=== PATIENT | male | born 1975 | race African-American/Black ===

== ENCOUNTER 2019-03-18 07:50 | Emergency (ER) | payer OTHER ==
[~2019-03-18] VITALS: Ht 188 cm; Wt 115.7 kg
[~2019-03-18 07:50] MED LIST: CENTRUM SILVER1 EAC2 PO; IBUPROFEN 800800 MG PO; NOHOMEMEDICATIONS; PERCOCET 5-3251 EACH PO; PERCOCET PO; PHENERGAN 25 MG25 M1 PO; PRILOSEC20 MG PO; ZOFRAN ODT4 MG SUBLING
[2019-03-18 07:59] VITALS: BP 140/72
[2019-03-18] MEDS ORDERED: NORCO 5-325 TA1 EAC1 PO (09:12)
== END 2019-03-18 09:14 | disposition home or self-care (01) ==
LOC: M.ERS 07:50
DX: S86.811A Strain of other muscle(s) and tendon(s) at lower leg level, right leg, initial encounter (principal); F17.210 Nicotine dependence, cigarettes, uncomplicated; W01.0XXA Fall on same level from slipping, tripping and stumbling without subsequent striking against object, initial encounter; Y92.89 Other specified places as the place of occurrence of the external cause; Y93.89 Activity, other specified; Y99.8 Other external cause status

== ENCOUNTER 2019-04-01 21:30 | Emergency (ER) | payer OTHER ==
[~2019-04-01] VITALS: Ht 188 cm; Wt 117.9 kg
[~2019-04-01 21:30] MED LIST changes: +NORCO 5-325 TA1 EAC1 PO
[2019-04-01] MEDS ORDERED: HYDROCODON-ACE1 EAC8 PO (22:54)
[2019-04-01 22:58] VITALS: BP 156/93
== END 2019-04-01 23:00 | disposition home or self-care (01) ==
LOC: M.ERS 21:30
DX: M25.461 Effusion, right knee (principal); F17.210 Nicotine dependence, cigarettes, uncomplicated

== ENCOUNTER 2019-05-10 06:40 | Emergency (ER) | payer OTHER ==
[~2019-05-10] VITALS: Ht 188 cm; Wt 117.9 kg
[~2019-05-10 06:40] MED LIST changes: +HYDROCODON-ACE1 EAC8 PO
[2019-05-10 07:02] LABS: ABSOLUTE LYMPHOCYTES 2.4 thou/uL (0.8-5.3); ABSOLUTE MONOCYTES 0.6 thou/uL (0.0-1.2); ABSOLUTE NEUTROPHILS 3.8 thou/uL (1.6-8.1); BASOPHILS 0.4 %; EOSINOPHILS 0.6 %; HEMATOCRIT 42.7 % (42.0-52.0); HEMOGLOBIN 14.8 gm/dL (14.0-18.0); MCH 30.2 pg (26.0-34.0); MCHC 34.6 g/dL (28.0-37.0); MCV 87.2 fL (80.0-100.0); MONOCYTES 8.8 %; MPV 6.8 fl. (7.2-11.1); NUCLEATED RBCS 0 /100WBC; PLATELET COUNT* 359 thou/uL (150-400); POLYS 55.2 %; RDW-CV 13.8 % (10.5-14.5); WBC 6.8 thou/uL (4.0-11.0)
[2019-05-10 07:10] LABS: CALCIUM 8.6 mg/dL (8.5-10.1); CREATININE 1.4 mg/dL (0.6-1.3); POTASSIUM 4.1 mmol/L (3.5-5.1)
[2019-05-10 07:14] LABS: ALBUMIN 3.7 g/dL (3.4-5.0); TOTAL BILIRUBIN 0.3 mg/dL (<0.1-1.0); TOTAL PROTEIN 8.2 g/dL (6.4-8.2)
[2019-05-10] MEDS ORDERED: TRAMADOL 50 MG50 MG PO (07:51)
[2019-05-10 09:33] VITALS: BP 160/100
== END 2019-05-10 09:38 | disposition home or self-care (01) ==
LOC: M.ERS 06:40
PROVIDERS: Emergency Medicine
DX: R10.13 Epigastric pain (principal); R11.2 Nausea with vomiting, unspecified; F17.210 Nicotine dependence, cigarettes, uncomplicated